=== PATIENT | female | born 1995 ===

== ENCOUNTER 2021-05-15 15:52 | Emergency (ER) | payer SELFPAY ==
[2021-05-15 16:11] VITALS: BP 138/82
== END 2021-05-15 21:40 | disposition left against medical advice (07) ==
LOC: ED 15:52
DX: T14.90XA Injury, unspecified, initial encounter (principal); Z53.21 Procedure and treatment not carried out due to patient leaving prior to being seen by health care provider; W19.XXXA Unspecified fall, initial encounter; Y93.89 Activity, other specified; Y92.89 Other specified places as the place of occurrence of the external cause; Y99.8 Other external cause status